=== PATIENT | female | born 1975 | race Two or more races ===

== ENCOUNTER 2020-03-20 13:10 | Emergency (ER) | payer OTHER ==
[~2020-03-20] VITALS: Ht 167.6 cm; Wt 74.8 kg
[2020-03-20 13:18] VITALS: BP 115/69
[2020-03-20] MEDS ORDERED: LIDOCAINE HCL/MPF 1% 30 ML VIAL IJ ONE (14:03)
--- NOTE | 2020-03-20 14:05 | NUR ---
DR GREENE AT BEDSIDE FOR STAPLING
[2020-03-20] MEDS: LIDOCAINE 1% INJ 50 ML MDV IJ ONE ×2 (15:18→15:19)
--- NOTE | 2020-03-20 15:19 | NUR ---
Patient discharged to home in stable condition. Written and verbal after care instructions given. Patient verbalizes understanding of instruction.
[2020-03-20] MEDS ORDERED: BACITRACIN ZINC OINT PACKET 1 EA PACKET TP ONE (15:30)
== END 2020-03-20 15:20 | disposition home or self-care (01) ==
LOC: ER 13:21 → EDBD 13:21 → ER 15:20
DX: S01.01XA Laceration without foreign body of scalp, initial encounter (principal); W01.0XXA Fall on same level from slipping, tripping and stumbling without subsequent striking against object, initial encounter; Y93.89 Activity, other specified; Y92.89 Other specified places as the place of occurrence of the external cause; Y99.8 Other external cause status
CPT/HCPCS: 12002; 99283; A6403; J3490